=== PATIENT | male | born 1960 | race African-American/Black ===

== ENCOUNTER 2016-08-11 08:26 | Inpatient (IN) | payer OTHER ==
[2016-08-11 08:46] VITALS: BMI 24.0
--- NOTE | 2016-08-11 11:02 | HP ---
COWS - Scale Resting Pulse: 0= [place] 80 or Below Sweatin=Flushed/Facial Moisture Restless Observation: 3= Extraneous Movement Pupil Size: 2= Moderately Dilated Bone or Joint Aches: 2= Severe Diffuse Aches Runny Nose/ Eye Tearin= Runny Nose/Eyes GI Upset > 30mins: 3= Vomiting/Diarrhea Tremor Observation: 2= Slight Tremor Visible Yawning Observation: 2= >3x During Session Anxiety or Irritability: 2=Irritable/Anxious Goose Flesh Skin: 0=Smooth Skin COWS Score: 20 Admission ROS S - HPI Chief Complaint: i am here to stop using drugs heroin and cocaine Allergies/Adverse Reactions: Allergies Allergy/AdvReac Type Severity Reaction Status Date / Time No Known Allergies Allergy Verified 08/11/16 08:50 History of Present Illness: this 55 years old male with heroin,and cocaine dependence,withdrawal symptom, last detox [facility] to 05/17/16 nicotine dependence several admissions to detox longest sobriety 5 years Exam Limitations: No Limitations - Ebola screening Have you traveled outside of the country in the last 21 days: No Have you had contact with anyone from an Ebola affected area: No Have you been sick,other than usual withdrawal symptoms: No - Review of Systems Constitutional: Chills, Loss of Appetite, Malaise, Night Sweats, Changes in sleep, Unintentional Wgt. Loss EENT: reports: Tearing, Nose Congestion Respiratory: reports: No Symptoms reported Cardiac: reports: No Symptoms Reported GI: reports: Diarrhea, Nausea, Vomiting : reports: No Symptoms Reported Musculoskeletal: reports: Back Pain, Joint Pain, Muscle Pain, Joint Stiffness Integumentary: reports: Dryness Neuro: reports: Headache, Tremors Endocrine: reports: No Symptoms Reported Hematology: reports: No Symptoms Reported Psychiatric: reports: No Sypmtoms Reported Other Systems: Reviewed and Negative Patient History - Patient Medical History Hx Anemia: No Hx Asthma: No Hx Chronic Obstructive Pulmonary Disease (COPD): No Hx Cancer: No Hx Cardiac Disorders: Yes (s/p angioplast with stent 2 vessels in 2007) Hx Congestive Heart Failure: No Hx Hypertension: No Hx Hypercholesterolemia: No Hx Pacemaker: No HX Cerebrovascular Accident: No Hx Seizures: No Hx Dementia: No Hx Diabetes: No Hx Gastrointestinal Disorders: No Hx Liver Disease: No Hx Genitourinary Disorders: No Hx Sexually Transmitted Disorders: No Hx Renal Disease (ESRD): No Hx Thyroid Disease: No Hx Human Immunodeficiency Virus (HIV): No (last 2014 negative) Hx Hepatitis C: No Hx Depression: No Hx Suicide Attempt: No Hx Schizophrenia: No Other Medical History: no suicidal,no homicidal - Patient Surgical History Past Surgical History: Yes Hx Neurologic Surgery: Yes (Spinal fusion upper back. 2013, C-Spine) Hx Cataract Extraction: No Hx Cardiac Surgery: Yes (stent x2 IN 2007) Hx Lung Surgery: No Hx Breast Surgery: No Hx Breast Biopsy: No Hx Abdominal Surgery: No Hx Appendectomy: No Hx Cholecystectomy: No Hx Genitourinary Surgery: No Hx Section: No Hx Orthopedic Surgery: No Anesthesia Reaction: No - PPD History Previous Implant?: Yes Documented Results: Negative w/proof Implanted On Prior [facility] Admission?: Yes Date: 10/18/15 Results: 0 MM PPD to be Administered?: No - Smoking Cessation Smoking history: Current every day smoker Have you smoked in the past 12 months: Yes Aproximately how many cigarettes per day: 6 Hx Chewing Tobacco Use: No Initiated information on smoking cessation: Yes 'Breaking Loose' booklet given: 08/11/16 - Substance & Tx. History Hx Alcohol Use: No Hx Substance Use: Yes Substance Use Type: Cocaine, Heroin Hx Substance Use Treatment: Yes ([facility] 05[facility] to 05/17/16) - Substances Abused Heroin Route: Inhalation Frequency: Daily Amount used: 7 bags Age of first use: 26 Date of Last Use: 08/10/16 Cocaine Route: Smoking Frequency: Daily Amount used: 5 bags Age of first use: 41 Date of Last Use: 08/10/16 Family Disease History - Family Disease History Family Disease History: CA: Mother (breast) Admission Physical Exam BHS - Vital Signs Vital Signs: Vital Signs - 24 hr 08/11/16 08:36 Temperature 96.9 F L Pulse Rate 71 Respiratory 18 Rate Blood Pressure 134/84 - Physical General Appearance: Yes: Moderate Distress, Tremorous, Irritable, Sweating, Anxious HEENTM: Yes: Nasal Congestion, Rhinorrhea Respiratory: Yes: Lungs Clear Neck: Yes: Within Normal Limits, Other (s/p cervical fusion c4 c5) Breast: Yes: Within Normal Limits Cardiology: Yes: Within Normal Limits, Regular Rhythm, Regular Rate, S1, S2, Other (s/p angioplasty with stent) Abdominal: Yes: Within Normal Limits, Normal Bowel Sounds, Non Tender, Flat, Soft Genitourinary: Yes: Within Normal Limits Back: Yes: Muscle Spasm Musculoskeletal: Yes: Back pain, Joint Stiffness, Muscle Pain Extremities: Yes: Tremors 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: 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: 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, Alert, Motor Strength 5/5 Integumentary: Yes: Dry Lymphatic: Yes: Within Normal Limits - Diagnostic (1) Cocaine dependence Current Visit: No Status: Acute Qualifiers: Substance use status: uncomplicated Qualified Code(s): F14.20 - Cocaine dependence, uncomplicated (2) Opioid dependence with withdrawal Current Visit: No Status: Acute (3) Hx of coronary artery disease Current Visit: No Status: Chronic (4) Nicotine dependence Current Visit: No Status: Chronic Qualifiers: Nicotine product type: cigarettes Substance use status: uncomplicated Qualified Code(s): F17.210 - Nicotine dependence, cigarettes, uncomplicated Comment: . (5) S/P angioplasty with stent Current Visit: No Status: Chronic (6) Weight loss Current Visit: Yes Status: Acute (7) S/P cervical spinal fusion Current Visit: Yes Status: Acute Cleared for Admission [facility] - Detox or Rehab [facility] Level of Care: Medically Managed Detox Regimen/Protocol: Methadone [facility] Breath Alcohol Content Breath Alcohol Content: 0 Urine Drug Screen - Results Drug Screen Negative: No Urine Drug Screen Results: MIKI-Cocaine, OPI-Opiates
[2016-08-11] MEDS ORDERED: ACETAMINOPHEN 325 MG TABLET (FP) PO PRN (11:17)
[2016-08-11] MEDS ORDERED: guaiFENesin/D-METHORPHAN HB 10 ML UNIT-DOSE CUPS PO PRN (11:17)
[2016-08-11] MEDS ORDERED: LOPERAMIDE HCL 2 MG CAPSULE PO PRN (11:17)
[2016-08-11] MEDS ORDERED: P-EPHED 60MG/TRIPROLIDI 2.5MG TABLET PO PRN (11:17)
[2016-08-11] MEDS ORDERED: diphenhydrAMINE HCL 50 MG CAPSULE PO PRN (11:17)
[2016-08-11] MEDS ORDERED: hydrOXYzine PAMOATE 25 MG CAPSULE (FP) PO PRN (11:17)
[2016-08-11] MEDS ORDERED: MAGNESIUM CITRATE 300 ML BOTTLE PO PRN (11:17)
[2016-08-11] MEDS ORDERED: MAGNESIUM HYDROX 2400MG/30ML ORAL SUSPENSION 30 ML CUP PO PRN (11:17)
[2016-08-11] MEDS ORDERED: MAG HYDROX/AL HYDROX/SIMETH 30 ML UNIT-DOSE CUP PO PRN (11:17)
[2016-08-11] MEDS ORDERED: IBUPROFEN 400 MG TABLET (FP) PO PRN (11:17)
[2016-08-11] MEDS ORDERED: MENTHOL/PHENOL 1 EACH UD MM PRN (11:17)
[2016-08-11] MEDS ORDERED: METHADONE HCL 10 MG TABLET (FOR DETOX USE ONLY) PO ONE ×2 (11:39→23:00)
[2016-08-11] MEDS: diazePAM 5 MG TABLET PO PRN ×2 (13:08→22:12)
[2016-08-11] MEDS: ASPIRIN COATED 81 MG TABLET.EC PO SCH (13:08)
--- NOTE | 2016-08-11 16:42 | EKG ---
Test Reason : Blood Pressure : / mmHG Vent. Rate : 070 BPM Atrial Rate : 070 BPM P-R Int : 128 ms QRS Dur : 084 ms QT Int : 382 ms P-R-T Axes : 072 067 066 degrees QTc Int : 412 ms NORMAL SINUS RHYTHM POSSIBLE LEFT ATRIAL ENLARGEMENT LEFT VENTRICULAR HYPERTROPHY CANNOT RULE OUT INFERIOR INFARCT , AGE UNDETERMINED ABNORMAL ECG NO PREVIOUS ECGS AVAILABLE Confirmed by GERMAIN PEGUERO MD ([id number]) on 08/11/2016 4:41:58 PM Referred By: Fernando Valencia Confirmed By:GERMAIN PEGUERO MD
[2016-08-11 17:34] LABS: URINE APPEARANCE CLEAR; URINE BILIRUBIN NEGATIVE (NEGATIVE); URINE BLOOD NEGATIVE (NEGATIVE); URINE COLOR YELLOW; URINE GLUCOSE (UA) NEGATIVE (NEGATIVE); URINE KETONE NEGATIVE (NEGATIVE); URINE LEUK ESTERASE NEGATIVE (NEGATIVE); URINE NITRITE NEGATIVE (NEGATIVE); URINE PROTEIN NEGATIVE (NEGATIVE); URINE UROBILINOGEN 2.0 E.U/dl E.U./dl (0.2-1.0)
[2016-08-11] MEDS: THIAMINE HCL 100 MG TABLET (FP) PO SCH (22:11)
[2016-08-12] MEDS ORDERED: METHADONE HCL 10 MG TABLET (FOR DETOX USE ONLY) PO ONE (10:00)
[2016-08-12] MEDS: diazePAM 5 MG TABLET PO PRN (10:09)
[2016-08-12] MEDS: PRENATAL VITAMINS W/ FOLIC ACID TABLET (FP) PO SCH (10:09)
[2016-08-12] MEDS: ASPIRIN COATED 81 MG TABLET.EC PO SCH (10:09)
[2016-08-12 10:20] LABS: ALK PHOS 78 U/L (45-117); ANION GAP 6 (8-16); BILIRUBIN,TOTAL 0.5 mg/dL (0.2-1.0); CO2 28 mmol/L (21-32); CREATININE 0.8 mg/dL (0.7-1.3); GLUCOSE,RANDOM 134 mg/dL (74-106); SGOT/AST 20 U/L (15-37); SGPT/ALT 32 U/L (12-78); TOT PROT 7.4 g/dl (6.4-8.2)
--- NOTE | 2016-08-12 10:22 | PN ---
[facility] COWS - Scale Resting Pulse: 0= [place] 80 or Below Sweatin=Flushed/Facial Moisture Restless Observation: 1= Difficult to Sit Still Pupil Size: 0= Normal to Room Light Bone or Joint Aches: 2= Severe Diffuse Aches Runny Nose/ Eye Tearin= Runny Nose/Eyes GI Upset > 30mins: 1= Stomach Cramp Tremor Observation of Outstretched Hands: 2= Slight Tremor Visible Yawning Observation: 2= >3x During Session Anxiety or Irritability: 2=Irritable/Anxious Goose Flesh Skin: 3=Piloerection COWS Score: 17 BHS Progress Note (SOAP) Subjective: stomach ache sweats shakes interrupted sleep Objective: 08/12/16 10:24 Vital Signs Temperature 98.8 F 08/12/16 10:02 Pulse Rate 79 08/12/16 10:02 Respiratory Rate 18 08/12/16 10:02 Blood Pressure 117/70 08/12/16 10:02 O2 Sat by Pulse Oximetry (%) Laboratory Tests 08/11/16 08/12/16 15:00 06:00 Sodium 139 Potassium 4.3 Chloride 105 Carbon Dioxide 28 Anion Gap 6 L BUN 8 D Creatinine 0.8 Creat Clearance w eGFR > 60 Random Glucose 134 H D Calcium 9.0 Total Bilirubin 0.5 D AST 20 D ALT 32 Alkaline Phosphatase 78 D Total Protein 7.4 Albumin 4.0 Urine Color Yellow Urine Appearance Clear Urine pH 6.0 Ur Specific [place] 1.016 Urine Protein Negative Urine Glucose (UA) Negative Urine Ketones Negative Urine Blood Negative Urine Nitrite Negative Urine Bilirubin Negative Urine Urobilinogen 2.0 e.u/dl Ur Leukocyte Esterase Negative labs pending awake/alert ambulating no acute distress Assessment: 08/12/16 10:25 withdrawal sx Plan: continue detox increase fluids labs pending MOM/mylanta
[2016-08-12 11:06] LABS: MCH 32.3 pg (25.7-33.7); MCHC 32.6 g/dl (32.0-35.9); MEAN CELL VOLUME 99.3 fl (80-96); MEAN PLT VOLUME 9.9 fl (7.5-11.1); PLATELET COUNT 238 K/MM3 (134-434); RDW 13.7 % (11.9-15.9); WHITE BLOOD COUNT 4.4 K/mm3 (4.0-10.0)
[2016-08-12] MEDS: THIAMINE HCL 100 MG TABLET (FP) PO SCH (23:11)
--- NOTE | 2016-08-13 09:20 | PN ---
S COWS - Scale Resting Pulse: 0= [place] 80 or Below Sweatin= Chills/Flushing Restless Observation: 3= Extraneous Movement Pupil Size: 1= Pupils >than Normal Bone or Joint Aches: 2= Severe Diffuse Aches Runny Nose/ Eye Tearin= Runny Nose/Eyes GI Upset > 30mins: 2= Nausea/Diarrhea Tremor Observation of Outstretched Hands: 2= Slight Tremor Visible Yawning Observation: 1= 1-2x During Session Anxiety or Irritability: 2=Irritable/Anxious Goose Flesh Skin: 0=Smooth Skin COWS Score: 16 S Progress Note (SOAP) Subjective: ALERT,IRRITABLE,ANXIOUS,INTERRUPTED SLEEP,TREMOR,PAIN IN THE BODY AND BACK Objective: 08/13/16 09:18 Vital Signs Temperature 97.3 F L 08/13/16 06:40 Pulse Rate 62 08/13/16 06:40 Respiratory Rate 16 08/13/16 06:40 Blood Pressure 107/68 08/13/16 06:40 O2 Sat by Pulse Oximetry (%) Laboratory Last Values WBC 4.4 K/mm3 (4.0-10.0) 08/12/16 06:00 RBC 4.48 M/mm3 (4.00-5.60) 08/12/16 06:00 Hgb 14.5 GM/dL (11.7-16.9) D 08/12/16 06:00 Hct 44.5 % (35.4-49) 08/12/16 06:00 MCV 99.3 fl (80-96) H 08/12/16 06:00 MCHC 32.6 g/dl (32.0-35.9) 08/12/16 06:00 RDW 13.7 % (11.9-15.9) 08/12/16 06:00 Plt Count 238 K/MM3 (134-434) 08/12/16 06:00 MPV 9.9 fl (7.5-11.1) 08/12/16 06:00 Sodium 139 mmol/L (136-145) 08/12/16 06:00 Potassium 4.3 mmol/L (3.5-5.1) 08/12/16 06:00 Chloride 105 mmol/L (98-107) 08/12/16 06:00 Carbon Dioxide 28 mmol/L (21-32) 08/12/16 06:00 Anion Gap 6 (8-16) L 08/12/16 06:00 BUN 8 mg/dL (7-18) D 08/12/16 06:00 Creatinine 0.8 mg/dL (0.7-1.3) 08/12/16 06:00 Creat Clearance w eGFR > 60 (>60) 08/12/16 06:00 Random Glucose 134 mg/dL (74-106) H D 08/12/16 06:00 Calcium 9.0 mg/dL (8.5-10.1) 08/12/16 06:00 Total Bilirubin 0.5 mg/dL (0.2-1.0) D 08/12/16 06:00 AST 20 U/L (15-37) D 08/12/16 06:00 ALT 32 U/L (12-78) 08/12/16 06:00 Alkaline Phosphatase 78 U/L (45-117) D 08/12/16 06:00 Total Protein 7.4 g/dl (6.4-8.2) 08/12/16 06:00 Albumin 4.0 g/dl (3.4-5.0) 08/12/16 06:00 Urine Color Yellow 08/11/16 15:00 Urine Appearance Clear 08/11/16 15:00 Urine pH 6.0 (5.0-8.0) 08/11/16 15:00 Ur Specific [place] 1.016 (1.001-1.035) 08/11/16 15:00 Urine Protein Negative (NEGATIVE) 08/11/16 15:00 Urine Glucose (UA) Negative (NEGATIVE) 08/11/16 15:00 Urine Ketones Negative (NEGATIVE) 08/11/16 15:00 Urine Blood Negative (NEGATIVE) 08/11/16 15:00 Urine Nitrite Negative (NEGATIVE) 08/11/16 15:00 Urine Bilirubin Negative (NEGATIVE) 08/11/16 15:00 Urine Urobilinogen 2.0 e.u/dl E.U./dl (0.2-1.0) 08/11/16 15:00 Ur Leukocyte Esterase Negative (NEGATIVE) 08/11/16 15:00 RPR Titer Nonreactive (NONREACTIVE) 08/12/16 06:00 Assessment: 08/13/16 09:19 WITHDRAWAL SYMPTOM Plan: CONTINUE DETOX,BGM MONITORING INITIAL GLUCOSE IS 134
[2016-08-13] MEDS ORDERED: METHADONE HCL 5 MG TABLET (FOR DETOX USE ONLY) PO ONE (10:00)
[2016-08-13] MEDS: PRENATAL VITAMINS W/ FOLIC ACID TABLET (FP) PO SCH (10:12)
[2016-08-13] MEDS: ASPIRIN COATED 81 MG TABLET.EC PO SCH (10:12)
[2016-08-13] MEDS: diazePAM 5 MG TABLET PO PRN (10:13)
[2016-08-13] MEDS: THIAMINE HCL 100 MG TABLET (FP) PO SCH (22:55)
--- NOTE | 2016-08-14 09:50 | PN ---
S Progress Note (SOAP) Subjective: ALERT,IRRITABLE,ANXIOUS,INTERRUPTED SLEEP,PAIN IN THE BODY AND BACK Objective: 08/14/16 09:49 Vital Signs Temperature 97.9 F 08/14/16 06:26 Pulse Rate 62 08/14/16 06:26 Respiratory Rate 18 08/14/16 06:26 Blood Pressure 123/76 08/14/16 06:26 O2 Sat by Pulse Oximetry (%) Assessment: 08/14/16 09:49 WITHDRAWAL SYMPTOM Plan: CONTINUE DETOX
[2016-08-14] MEDS ORDERED: METHADONE HCL 5 MG TABLET (FOR DETOX USE ONLY) PO ONE (10:00)
[2016-08-14] MEDS: PRENATAL VITAMINS W/ FOLIC ACID TABLET (FP) PO SCH (10:06)
[2016-08-14] MEDS: diazePAM 5 MG TABLET PO PRN (10:06)
[2016-08-14] MEDS: ASPIRIN COATED 81 MG TABLET.EC PO SCH (10:06)
[2016-08-14] MEDS: THIAMINE HCL 100 MG TABLET (FP) PO SCH (22:10)
[2016-08-15] MEDS ORDERED: METHADONE HCL 10 MG TABLET (FOR DETOX USE ONLY) PO ONE (10:00)
[2016-08-15] MEDS: PRENATAL VITAMINS W/ FOLIC ACID TABLET (FP) PO SCH (10:16)
[2016-08-15] MEDS: ASPIRIN COATED 81 MG TABLET.EC PO SCH (10:16)
--- NOTE | 2016-08-15 11:03 | PN ---
BHS Progress Note (SOAP) Subjective: interruptive sleep, sweats Objective: 08/15/16 11:05 Vital Signs Temperature 98.1 F 08/15/16 10:12 Pulse Rate 68 08/15/16 10:12 Respiratory Rate 18 08/15/16 10:12 Blood Pressure 133/67 08/15/16 10:12 O2 Sat by Pulse Oximetry (%) Laboratory Tests 08/11/16 08/12/16 08/12/16 15:00 06:00 06:00 WBC 4.4 RBC 4.48 Hgb 14.5 D Hct 44.5 MCV 99.3 H MCHC 32.6 RDW 13.7 Plt Count 238 MPV 9.9 Sodium 139 Potassium 4.3 Chloride 105 Carbon Dioxide 28 Anion Gap 6 L BUN 8 D Creatinine 0.8 Creat Clearance w eGFR > 60 POC Glucometer Random Glucose 134 H D Calcium 9.0 Total Bilirubin 0.5 D AST 20 D ALT 32 Alkaline Phosphatase 78 D Total Protein 7.4 Albumin 4.0 Urine Color Yellow Urine Appearance Clear Urine pH 6.0 Ur Specific [place] 1.016 Urine Protein Negative Urine Glucose (UA) Negative Urine Ketones Negative Urine Blood Negative Urine Nitrite Negative Urine Bilirubin Negative Urine Urobilinogen 2.0 e.u/dl Ur Leukocyte Esterase Negative RPR Titer 08/12/16 08/14/16 06:00 07:21 WBC RBC Hgb Hct MCV MCHC RDW Plt Count MPV Sodium Potassium Chloride Carbon Dioxide Anion Gap BUN Creatinine Creat Clearance w eGFR POC Glucometer 89 Random Glucose Calcium Total Bilirubin AST ALT Alkaline Phosphatase Total Protein Albumin Urine Color Urine Appearance Urine pH Ur Specific [place] Urine Protein Urine Glucose (UA) Urine Ketones Urine Blood Urine Nitrite Urine Bilirubin Urine Urobilinogen Ur Leukocyte Esterase RPR Titer Nonreactive pt aox3 in nad lying in bed Assessment: 08/15/16 11:06 withdrawl sx;s Plan: cont. detox increase fluids d/c in am
[2016-08-15] MEDS: THIAMINE HCL 100 MG TABLET (FP) PO SCH (22:41)
[2016-08-16] MEDS ORDERED: METHADONE HCL 5 MG TABLET (FOR DETOX USE ONLY) PO ONE (06:00)
[2016-08-16 06:37] VITALS: BP 113/69; PULSE 65; TEMP 97.7
--- NOTE | 2016-08-16 09:15 | DS ---
[facility] Detox Discharge Summary Admission Date: 08/11/16 Discharge Date: 08/16/16 - History Present History: Cocaine Dependence, Opioid Dependence - Physical Exam Results Vital Signs: Vital Signs Temperature 97.7 F 08/16/16 06:36 Pulse Rate 65 08/16/16 06:36 Respiratory Rate 16 08/16/16 06:36 Blood Pressure 113/69 08/16/16 06:36 O2 Sat by Pulse Oximetry (%) - Treatment Hospital Course: Detox Protocol Followed, Detoxed Safely, Responded well, Discharged Condition Good - Medication Discharge Medications: Ambulatory Orders NK [No Known Home Medication] 10/16/15 - Diagnosis (1) S/P cervical spinal fusion Current Visit: No Status: Chronic (2) Weight loss Current Visit: Yes Status: Acute (3) Cocaine dependence Current Visit: Yes Status: Chronic Qualifiers: Substance use status: uncomplicated Qualified Code(s): F14.20 - Cocaine dependence, uncomplicated (4) Opioid dependence with withdrawal Current Visit: Yes Status: Chronic (5) Hx of coronary artery disease Current Visit: No Status: Chronic (6) Nicotine dependence Current Visit: Yes Status: Chronic Qualifiers: Nicotine product type: cigarettes Substance use status: uncomplicated Qualified Code(s): F17.210 - Nicotine dependence, cigarettes, uncomplicated - AMA Did Patient Leave Against Medical Advice: No
== END 2016-08-16 09:10 | disposition home or self-care (01) | DRG 773 ==
LOC: YASAS 08:26 → Y6N 11:30
PROVIDERS: ADMIT Internal Medicine Addiction Medicine; ATTEND Internal Medicine Addiction Medicine
PROC: HZ2ZZZZ Detoxification Services for Substance Abuse Treatment (ICD-10-PCS; principal; 2016-08-11)
DX: F11.23 Opioid dependence with withdrawal (principal); F14.20 Cocaine dependence, uncomplicated; F17.210 Nicotine dependence, cigarettes, uncomplicated; I25.10 Atherosclerotic heart disease of native coronary artery without angina pectoris; Z95.5 Presence of coronary angioplasty implant and graft; Z87.898 Personal history of other specified conditions; Z98.1 Arthrodesis status; Z59.0 Homelessness
CPT/HCPCS: 36415; 80053; 81003; 85027; 86593; 93005; 93010

== ENCOUNTER 2023-11-13 15:20 | Inpatient (IN) | payer OTHER ==
[2023-11-13 17:20] VITALS: BMI 21.2
[2023-11-13] MEDS ORDERED: MAGNESIUM HYDROX 2400MG/30ML ORAL SUSPENSION 30 ML CUP PO PRN (20:39)
[2023-11-13] MEDS ORDERED: guaiFENesin 600 MG TABLET.ER (FP) PO PRN (20:39)
[2023-11-13] MEDS ORDERED: POLYETHYLENE GLYCOL (HEALTHYLAX) 3350 17 GM PACKET PO PRN (20:39)
[2023-11-13] MEDS ORDERED: NALOXONE HCL (KLOXXADO) 8 MG SPRAY NS PRN (20:39)
[2023-11-13] MEDS ORDERED: IBUPROFEN 400 MG TABLET (FP) PO PRN (20:39)
[2023-11-13] MEDS ORDERED: BENZOCAINE/MENTHOL (CHLORASEPTIC ) LOZENGE MM PRN (20:39)
[2023-11-13] MEDS ORDERED: LOPERAMIDE HCL 2 MG CAPSULE PO PRN (20:39)
[2023-11-13] MEDS ORDERED: BENZONATATE 200 MG CAPSULE PO PRN (20:39)
[2023-11-13] MEDS ORDERED: NALOXONE HCL 0.4 MG/ML VIAL IM PRN (20:39)
[2023-11-13] MEDS ORDERED: NICOTINE POLACRILEX 2 MG GUM BUC PRN (20:39)
[2023-11-13] MEDS ORDERED: MAG HYDROX/AL HYDROX/SIMETH 30 ML UNIT-DOSE CUP PO PRN (20:39)
[2023-11-13] MEDS ORDERED: BUPRENORPHINE/NALOXONE 4 MG/1 MG FILM PACKET ONE (21:25)
[2023-11-13] MEDS ORDERED: IBUPROFEN 600 MG TABLET (FP) PO ONE (21:25)
[2023-11-13] MEDS: IBUPROFEN 600 MG TABLET (FP) PO PRN (21:31)
[2023-11-13] MEDS: BUPRENORPHINE/NALOXONE 4 MG/1 MG FILM PACKET SL ONE (21:31)
[2023-11-13] MEDS ORDERED: DOCUSATE SODIUM 100 MG CAPSULE (FP) PO PRN (22:06)
[2023-11-13] MEDS: THIAMINE 100 MG TABLET PO SCH (22:16)
[2023-11-13] MEDS: MELATONIN 5 MG TABLETS PO SCH (22:17)
[2023-11-13] MEDS: METOPROLOL TARTRATE 25 MG TABLET (FP) PO SCH (22:37)
[2023-11-13] MEDS: FAMOTIDINE 20 MG TABLET PO SCH (22:37)
[2023-11-14] MEDS: BUPRENORPHINE/NALOXONE 2 MG/0.5 MG FILM PACKET SL SCH (06:29)
[2023-11-14] MEDS: PRENATAL VITAMINS W/ FOLIC ACID TABLET (FP) PO SCH (09:57)
[2023-11-14] MEDS: ASPIRIN 81 MG CHEWABLE TABLETS PO SCH (09:57)
[2023-11-14] MEDS: LOSARTAN POTASSIUM 25 MG TABLET PO SCH ×2 (09:57→13:08)
[2023-11-14] MEDS: NICOTINE 14 MG/24 HOURS TOPICAL PATCH TD SCH (09:57)
[2023-11-14] MEDS: TUBERCULIN PPD 5 TU/0.1ML SYRINGE (IN PATIENT USE ONLY) ID ONE (10:13)
[2023-11-14] MEDS ORDERED: IPRATROPIUM BR 0.02% 0.5 MG/2.5 ML VIAL.NEB. NEB PRN (11:37)
[2023-11-14 12:40] LABS: HEMATOCRIT 32.4 % (35.4-49); HEMOGLOBIN 10.5 GM/dL (11.7-16.9); MCH 31.5 pg (25.7-33.7); MCHC 32.3 g/dl (32.0-35.9); MEAN CELL VOLUME 97.5 fl (80-96); MEAN PLT VOLUME 9.9 fl (7.5-11.1); PLATELET COUNT 305 10^3/uL (134-434); RBC 3.32 M/mm3 (4.00-5.60); RDW 15.2 % (11.9-15.9); WHITE BLOOD COUNT 4.1 K/mm3 (4.0-10.0)
[2023-11-14 13:03] LABS: POTASSIUM 4.2 mmol/L (3.5-5.1)
[2023-11-14] MEDS: METOPROLOL TARTRATE 25 MG TABLET (FP) PO SCH (13:08)
[2023-11-14 13:10] LABS: SYPHILIS W/ RPR CONF NON-REACTIVE (NONREACTIVE)
[2023-11-14 13:12] LABS: CALCIUM 9.3 mg/dL (8.5-10.1)
[2023-11-14 13:13] LABS: ALBUMIN 3.2 g/dl (3.4-5.0)
[2023-11-14 13:16] LABS: CREATININE 0.7 mg/dL (0.55-1.3)
[2023-11-14 13:17] LABS: BILIRUBIN,TOTAL 0.4 mg/dL (0.2-1); TOT PROT 7.5 g/dl (6.4-8.2)
[2023-11-14 15:01] LABS: URINE APPEARANCE CLEAR; URINE BILIRUBIN NEGATIVE (NEGATIVE); URINE COLOR YELLOW; URINE GLUCOSE (UA) NEGATIVE (NEGATIVE); URINE KETONE NEGATIVE (NEGATIVE); URINE LEUK ESTERASE NEGATIVE (NEGATIVE); URINE NITRITE NEGATIVE (NEGATIVE); URINE PROTEIN NEGATIVE (NEGATIVE); URINE UROBILINOGEN 0.2 mg/dL (0.2-1.0)
[2023-11-14] MEDS ORDERED: AMMONIUM LACTATE 12% LOTION 225 GM BOTTLE TP PRN (15:13)
[2023-11-14] MEDS: ATORVASTATIN CA 80 MG TABLET (FP) PO SCH (21:26)
[2023-11-15] MEDS: BUPRENORPHINE/NALOXONE 4 MG/1 MG FILM PACKET SL SCH (09:57)
[2023-11-15] MEDS: SENNOSIDES 8.6MG TABLET (FP) PO SCH (09:57)
[2023-11-16] MEDS: ACETAMINOPHEN 325 MG TABLET (FP) PO PRN (09:58)
[2023-11-20] MEDS: LIDOCAINE 4% PATCH TP SCH (15:37)
[2023-11-20] MEDS: LIDOCAINE PATCH REMOVAL MC SCH (21:22)
[2023-11-23] MEDS: BUPRENORPHINE/NALOXONE 8 MG/2 MG FILM PACKET SL SCH (21:08)
[2023-11-27] MEDS ORDERED: LIDOCAINE 4% PATCH TP PRN (14:28)
[2023-11-28] MEDS: P-EPHED 60MG/TRIPROLIDI 2.5MG TABLET PO PRN (17:41)
[2023-11-29] MEDS ORDERED: guaiFENesin 600 MG TABLET.ER (FP) PO PRN (13:53)
[2023-11-29] MEDS ORDERED: BENZONATATE 200 MG CAPSULE PO PRN (13:53)
[2023-11-29] MEDS ORDERED: DICYCLOMINE HCL 10 MG CAPSULE PO PRN (13:53)
[2023-11-29] MEDS ORDERED: ALBUTEROL SO4 0.083% IH SOL 2.5 MG/3 ML VIAL.NEB. NEB PRN (17:15)
[2023-11-30] MEDS: ALBUTEROL SO4 HFA INHALER IH PRN (09:05)
[2023-12-07] MEDS: NICOTINE 14 MG/24 HOURS TOPICAL PATCH TD PRN (09:52)
[2023-12-07] MEDS: BUPRENORPHINE/NALOXONE 2 MG/0.5 MG FILM PACKET SL SCH (09:56)
[2023-12-11 07:51] VITALS: BP 128/82; PULSE 56; RESP 17; TEMP 97.4
== END 2023-12-11 09:18 | disposition home or self-care (01) | DRG 772 ==
LOC: YASAS 15:20 → Y3E 21:24
PROVIDERS: ADMIT Allergy & Immunology; ATTEND Nurse Practitioner Family
PROC: HZ42ZZZ Group Counseling for Substance Abuse Treatment, Cognitive-Behavioral (ICD-10-PCS; principal; 2023-11-13)
DX: F11.20 Opioid dependence, uncomplicated (principal); F17.210 Nicotine dependence, cigarettes, uncomplicated; I25.10 Atherosclerotic heart disease of native coronary artery without angina pectoris; I10 Essential (primary) hypertension; Z95.1 Presence of aortocoronary bypass graft; Z95.5 Presence of coronary angioplasty implant and graft; J44.9 Chronic obstructive pulmonary disease, unspecified; L85.3 Xerosis cutis; Z86.59 Personal history of other mental and behavioral disorders; Z98.890 Other specified postprocedural states
CPT/HCPCS: 0241U-QW; 36415; 80053; 81003; 82962; 85027; 86780; 86803; 87811; 93005; 93010